=== PATIENT | female | born 1950 | race African-American/Black ===

== ENCOUNTER 2023-11-08 04:51 | Emergency (ER) | payer OTHER ==
[~2023-11-08] VITALS: Ht 157.5 cm; Wt 78.0 kg
[2023-11-08 05:05] VITALS: BP_SYST 146; PULSE 59; RESP 20; TEMP 97.4; O2SAT 98
[2023-11-08 06:50] VITALS: BP_SYST 146; PULSE 59; RESP 20; TEMP 97.4; O2SAT 98
== END 2023-11-08 06:50 | disposition home or self-care (01) ==
LOC: SED 04:51
DX: R22.41 Localized swelling, mass and lump, right lower limb (principal); I10 Essential (primary) hypertension; Z79.899 Other long term (current) drug therapy
CPT/HCPCS: 73560; 93971; 99284